=== PATIENT | male | born 1990 | race Caucasian/White ===

== ENCOUNTER 2016-12-04 01:58 | Emergency (ER) | payer SELFPAY ==
--- NOTE | 2016-12-04 02:10 | EDPHY ---
H & P Stated Complaint: woke up with swollen face HPI/ROS: HPI CHIEF COMPLAINT: Right Lower Lip swelling. HISTORY OF PRESENT ILLNESS: This patient very pleasant 26-year-old male, homeless, smokes tobacco and marijuana, denies IV drug use, he presents emergency room with right lower lateral lip swelling. Patient reports to me that he woke up approximately an hour ago with this. No trouble swallowing. No drooling. No respiratory symptoms no abdominal pain or cramps. No nausea vomiting. No shortness of breath. No chest pain. No fever. He states that the lipase tingling. He is unsure something bit him or allergic reaction. He is not on any medications. He states he has no food allergies. He has never had this happen before. Upon arrival here in the emergency room he appears to have asymmetrical angioedema that is soft to his right lower lateral aspect of his lip. Past Medical History: No medical history Past Surgical History: Denies surgical history Social History: Daily tobacco daily marijuana denies illicit drugs or alcohol homeless Family History: No family history of angioedema. ROS REVIEW OF SYSTEMS: A comprehensive 10 point review of systems is otherwise negative aside from elements mentioned in the history of present illness. Exam Constitutional triage nursing summary reviewed, vital signs reviewed, awake/ alert. Eyes normal conjunctivae and sclera, EOMI, PERRLA. HENT oropharynx: Mild right lateral lower lip swelling mild edema present, no urticaria, no rash, no lesions, uvula midline, no soft palate swelling, no uvula swelling, no Trav's, no submandibular space swelling, no bite giovanny, no redness, the area of swelling is soft. normal inspection, atraumatic, moist mucus membranes, no epistaxis, neck supple/ no meningismus, no raccoon eyes. Respiratory clear to auscultation bilaterally, normal breath sounds, no respiratory distress, no wheezing. Cardiovascular rate normal, regular rhythm, no murmur, no edema, distal pulses normal. Gastrointestinal soft, non-tender, no rebound, no guarding, normal bowel sounds, no distension, no pulsatile mass. Genitourinary no CVA tenderness. Musculoskeletal no midline vertebral tenderness, full range of motion, no calf swelling, no tenderness of extremities, no meningismus, good pulses, neurovascularly intact. Skin pink, warm, & dry, no rash, skin atraumatic. Neurologic awake, alert and oriented x 3, AAOx3, moves all 4 extremities equally, motor intact, sensory intact, CN II-XII intact, normal cerebellar, normal vision, normal speech. Psychiatric normal mood/affect. Heme/Lymph/Immune no lymphadenopathy. Differential Diagnosis: Includes but is not limited to in a particular order angioedema, asymmetrical angioedema, allergic reaction, anaphylaxis, infection, insect bite Medical Decision Making: Plan for this patient p.o. prednisone Pepcid and Benadryl and re-evaluate. Will watch closely for further worsening angioedema. Re-evaluation: [id number]: Patient is sleeping resting comfortably. No progression of allergic reaction. His right lateral lower lip swelling has improved here. He has not had no further signs of allergic reaction. Be placed on Benadryl, Zantac and prednisone outpatient. He understands return emergency room if develops any worsening swelling trouble swallowing shortness of breath or any questions or concerns. Source: Patient - Personal History Current Tetanus/Diphtheria Vaccine: Unsure - Medical/Surgical History Hx Asthma: Yes Hx Chronic Respiratory Disease: No Hx Diabetes: No Hx Cardiac Disease: No Hx Renal Disease: No Hx Cirrhosis: No Hx Alcoholism: No Hx HIV/AIDS: No Hx Splenectomy or Spleen Trauma: No Other PMH: asthma - Social History Smoking Status: Current every day smoker Constitutional: Initial Vital Signs Temperature (C) 36.6 C 12/04/16 02:01 Heart Rate 48 L 12/04/16 02:01 Respiratory Rate 18 12/04/16 02:01 Blood Pressure 126/79 H 12/04/16 02:01 O2 Sat (%) 96 12/04/16 02:01 O2 Delivery Mode Room Air Allergies/Adverse Reactions: Penicillins Allergy (Intermediate, Verified 06/19/15 16:24) Hives Home Medications: Medication Instructions Recorded Ranitidine HCl [Zantac] 150 mg PO DAILY #7 tablet 12/04/16 diphenhydrAMINE [Benadryl 50 MG 50 mg PO ONCE #7 cap 12/04/16 (*)] predniSONE 60 mg PO DAILY #15 tab 12/04/16 Medical Decision Making - Data Points Medications Given: Discontinued Medications Diphenhydramine HCl (Benadryl) 50 mg PO EDNOW ONE Stop: 12/04/16 02:16 Last Admin: 12/04/16 02:21 Dose: 50 mg Famotidine (Pepcid) 20 mg PO EDNOW ONE Stop: 12/04/16 02:16 Last Admin: 12/04/16 02:21 Dose: 20 mg Prednisone (Prednisone) 60 mg PO EDNOW ONE Stop: 12/04/16 02:16 Last Admin: 12/04/16 02:21 Dose: 60 mg Departure - Departure Disposition: Home, Routine, Self-Care Clinical Impression: Angioedema Qualifiers: Encounter type: initial encounter Qualified Code(s): T78.3XXA - Angioneurotic edema, initial encounter Condition: Good Instructions: Angioedema (ED) Additional Instructions: 1.Return immediately to the emergency room if you have any worsening symptoms includes trouble swallowing, trouble breathing, or worsening lip swelling or mouth swelling. Referrals: NONE *PRIMARY CARE P,. [Primary Care Provider] - As per Instructions Prescriptions: diphenhydrAMINE [Benadryl 50 MG (*)] 50 mg PO ONCE #7 cap predniSONE 60 mg PO DAILY #15 tab Ranitidine HCl [Zantac] 150 mg PO DAILY #7 tablet
[2016-12-04] MEDS ORDERED: FAMOTIDINE 20 MG TAB PO ONE (02:15)
[2016-12-04] MEDS ORDERED: diphenhydrAMINE 25 MG CAP PO ONE ×2 (02:15→02:26)
[2016-12-04] MEDS ORDERED: predniSONE 20 MG TAB PO ONE (02:15)
[2016-12-04] MEDS ORDERED: FAMOTIDINE 20 MG TAB ONE (02:26)
[2016-12-04] MEDS ORDERED: predniSONE 20 MG TAB ONE (02:26)
[2016-12-04 05:03] VITALS: BP 112/29; PULSE 45; RESP 16; TEMP 97.7; O2SAT 95
== END 2016-12-04 05:02 | disposition home or self-care (01) ==
DX: T78.3XXA Angioneurotic edema, initial encounter (principal); F17.200 Nicotine dependence, unspecified, uncomplicated; J45.909 Unspecified asthma, uncomplicated